=== PATIENT | male | born 1955 | race African-American/Black ===

== ENCOUNTER 2017-08-01 09:06 | Day surgery (SDC) | END 2017-08-01 16:20 | disposition home or self-care (01) ==

== ENCOUNTER 2018-08-07 10:19 | Day surgery (SDC) | payer OTHER ==
[2018-08-07] VITALS (11 sets, daily range): BP systolic 129–149; BP diastolic 70–91; PULSE 54–67; RESP 14–20; Ht 182.9 cm; Wt 114.6 kg
[~2018-08-07] VITALS: Ht 182.9 cm; Wt 114.6 kg
[~2018-08-07 10:19] MED LIST: CEFAZOLIN 2 GM/50 ML (PMX) 50 ML IVPB ONE; DESFLURANE 15 MIN ONE; ENOX150D SQ; GLYCOPYRROLATE 0.4 MG INJ ONE; NEOSTIGMINE 3 MG/3 ML SYRINGE ONE; SIMV20TA PO; WARF5TAB PO; WARF6TAB PO
[2018-08-07] MEDS ORDERED: LACTATED RINGER'S 1,000 ML IV SCH (12:30)
--- NOTE | 2018-08-07 13:35 | PREAC ---
Date/Time of Note Date/Time of Note DATE: 08/07/18 TIME: 13:34 Anesthesia Eval and Record Evaluation Time Pre-Procedure Interview DATE: 08/07/18 TIME: 13:34 Age 63 Sex male NPO: 8 hrs Preoperative diagnosis hydrocele Planned procedure Hydroceletomy Past Medical History Past Medical History: Includes Cardio: HTN, Dyslipidemia Musculoskeletal: Osteoarthritis Surgery & Anesthesia Issues No known issue Meds Anticoagulation: No Beta Jeremi within 24 hr: No Reason Beta Jeremi not given: Pt. not on B-Jeremi Reported Medications Simvastatin* (Zocor*) 20 Mg Tablet, 20 MG PO QHS, #30 TAB 08/01/17 Warfarin Sodium* (Coumadin*) 6 Mg Tablet, 6 MG PO EVERY OTHER DAY, TAB ALTERNATING WITH 5MG 08/01/17 Warfarin Sodium* (Coumadin*) 5 Mg Tablet, 5 MG PO EVERY OTHER DAY, TAB ALTERNATING WITH 6MG 08/01/17 Enoxaparin Sodium (Lovenox) 150 Mg/1 Ml Syringe, 150 MG SQ DAILY 08/01/17 Current Medications Lactated Ringer's 1,000 ml @ 0 mls/hr Q0M IV Last administered on 08/07/18at 12:12; Admin Dose 30 MLS/HR; Start 08/07/18 at 12:30 Meds reviewed: Yes Allergies Coded Allergies: No Known Allergy (Unverified , 08/07/18) Allergies Reviewed: Yes Labs/Studies Labs Reviewed: Reviewed by anesthesiologist test: N/A Studies: ECG Pre-procedure Exam Last vitals Vital Signs Date Temp Pulse Resp B/P (MAP) Pulse Ox O2 O2 Flow FiO2 Time Delivery Rate 08/07/18 97.7 67 18 129/82 98 Room Air 10:52 (98) Airway: Adequate mouth opening, Adequate thyromental dist Mallampati: Mallampati II Teeth: Normal Lung: Normal Heart: Normal ASA Physical Status ASA physical status: 2 Emergency: None Planned Anesthetic General/MAC: ETT Pre-operative Attestations Prior to commencing anesthesia and surgery, the patient was re-evaluated, there was verification of: *The patient's identity *The results of appropriate recent lab work and preoperative vital signs *The above evaluation not changing prior to induction *Anesthetic plan, risk benefits, alternative and complications discussed with patient/family; questions answered; patient/family understands, accepts and wishes to proceed. ABRAM PERKINS August 07, 2018 13:35
[2018-08-07] MEDS ORDERED: FENTAnyl 50 MCG/ML VIAL ONE (13:42)
[2018-08-07] MEDS ORDERED: DIPHENHYDRAMINE 50 MG INJ IV PRN (14:00)
[2018-08-07] MEDS ORDERED: ONDANSETRON 4 MG INJ IV PRN (14:00)
[2018-08-07] MEDS ORDERED: ALBUTEROL 0.083% (NEB) 2.5 MG/3 ML AMP HHN PRN (14:00)
[2018-08-07] MEDS ORDERED: METOCLOPRAMIDE 10 MG INJ IV PRN (14:00)
[2018-08-07] MEDS ORDERED: FENTAnyl 50 MCG/ML VIAL IV PRN ×3 (14:00)
[2018-08-07] MEDS ORDERED: MEPERIDINE 25 MG INJ IV PRN (14:00)
[2018-08-07] MEDS ORDERED: HYDROmorphONE 1 MG/5 ML IV SYRINGE IV PRN ×3 (14:00)
[2018-08-07] MEDS ORDERED: ROCURONIUM 50 MG INJ ONE (14:10)
[2018-08-07] MEDS ORDERED: LIDOCAINE 100 MG SYRINGE ONE (14:10)
[2018-08-07] MEDS ORDERED: CEFAZOLIN 1 GM INJ ONE (14:10)
[2018-08-07] MEDS ORDERED: SUCCINYLCHOLINE CHLORIDE 100 MG/5 ML SYG IV ONE (14:10)
[2018-08-07] MEDS ORDERED: PROPOFOL 20 ML ONE (14:10)
[2018-08-07] MEDS ORDERED: BUPIVACAINE 0.5% (SDV) 30 ML INJ ONE (15:02)
--- NOTE | 2018-08-07 15:22 | SIPON ---
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
--- NOTE | 2018-08-07 15:25 | PDOCDIS ---
Discharge Instructions DIAGNOSIS Discharge Diagnosis recurrent right hydrocele CONDITION [id number] Patient Condition: Gslxo9x Good HOME CARE INSTRUCTIONS: Jmica0Ne Diet Instructions: Efxrs5k Regular ACTIVITY: Imsjg5Hc Activity Restrictions: Prpuw5e Slowly Increase Activity Avoid heavy lifting No Sexual Activity [id number] Bathing Restrictions: Dqlqw4a Shower (OK to shower and get wound wet with running water starting on 08/10/18. Do not swim or emerse in bath water for two weeks) FOLLOW UP/APPOINTMENTS Follow-up Plan 1 - [address] Mandujano Office SCHOOL/WORK RELEASE May return to School/Work on: August 19, 2018 May return to School/Work with: With Restrictions (No lifting more than 5 lb, No straining for two weeks post surgery) ZIGGY MANDUJANO August 07, 2018 15:25
--- NOTE | 2018-08-07 15:27 | DS ---
Date/Time of Note Date/Time of Note DATE: 08/07/18 TIME: 15:25 Discharge Summary Admission/Discharge Info Admit Date/Time 08/07/18 Discharge Date/Time 08/07/18 Discharge Diagnosis recurrent right hydrocele Patient Condition: Good Consults NOne Procedures Right hydrocelectomy, scrotoplasty Hx of Present Illness recurrent right hydrocele Hospital Course Pt underwent the above surgery and transferred to PACU. Once stable, tolerating PO, remaining afebrile, and pain was under control pt was DC'd home Rx for [place] and cipro given to pt Home Meds Reported Medications Simvastatin* (Zocor*) 20 Mg Tablet, 20 MG PO QHS, #30 TAB 08/01/17 Warfarin Sodium* (Coumadin*) 6 Mg Tablet, 6 MG PO EVERY OTHER DAY, TAB ALTERNATING WITH 5MG 08/01/17 Warfarin Sodium* (Coumadin*) 5 Mg Tablet, 5 MG PO EVERY OTHER DAY, TAB ALTERNATING WITH 6MG 08/01/17 Enoxaparin Sodium (Lovenox) 150 Mg/1 Ml Syringe, 150 MG SQ DAILY 08/01/17 Follow-up Plan 1 - [address] Mandujano Office Primary Care Provider Not On Staff Doctor Time spent on discharge: < 30 minutes Pending Labs Laboratory Tests Test 08/07/18 11:15 Prothrombin Time 13.9 Sec (11.9-14.9) Prothrombin Time Ratio 1.1 INR International Normalized Ratio 1.06 Activated Partial Thromboplast Time 34.6 Sec (23.0-35.0) ZIGGY MANDUJANO August 07, 2018 15:27
--- NOTE | 2018-08-07 15:29 | PDOCDIS ---
Discharge Instructions DIAGNOSIS Discharge Diagnosis recurrent right hydrocele CONDITION [id number] Patient Condition: Wyayr6m Good HOME CARE INSTRUCTIONS: Poibr6Kw Diet Instructions: Xtzox0m Regular ACTIVITY: Ewaqm2Pc Activity Restrictions: Adkwx3f Slowly Increase Activity Avoid heavy lifting No Sexual Activity Yomvc7Lf Bathing Restrictions: Njrnv7p Shower (OK to shower and get wound wet with running water starting on 08/10/18. Do not swim or emerse in bath water for two weeks) FOLLOW UP/APPOINTMENTS Follow-up Plan 1 - [address] Mandujano Office OTHER ORDERS: Other Orders: Keep scrotal support on Do not pull out the drain SCHOOL/WORK RELEASE May return to School/Work on: August 19, 2018 May return to School/Work with: With Restrictions (No lifting more than 5 lb, No straining for two weeks post surgery) ZIGGY MANDUJANO August 07, 2018 15:29
--- NOTE | 2018-08-07 16:40 | HP ---
DATE OF ADMISSION: 08/07/2018 CHIEF COMPLAINT: Right hydrocele. HISTORY OF PRESENT ILLNESS: This is a 63-year-old male with history of hypercoagulable state and chr onic DVTs on blood thinners. The patient also has a history of peripheral vascular disease. About 1 year ago, the patient underwent a hydrocelectomy. However, his hydrocele recurred. At that time, i t was noted that the hydrocele sac was severely adherent to the scrotal wall. Therefore, it appears that the entire hydrocele sac may not have been able to be dissected. The patient is very bothered by his large hydrocele. He reports that he has not seen any evidence of enlargement of the inguinal area and has not noticed tracking up of the fluid into the right inguina l area. He has not had any testicular infections. PAST MEDICAL HISTORY: 1. Chronic DVTs, left greater than right leg, with lower extremity edema. 2. Hypercoagulable state. The patient has stopped his Coumadin and has been on Lovenox for the past 5 days. 3. Peripheral artery disease. PAST SURGICAL HISTORY: Fem-fem bypass and previous hydrocelectomy. FAMILY HISTORY: Father with prostate cancer. Grandfather with prostate cancer. Two uncles with pro state cancer. SOCIAL HISTORY: The patient does not smoke; however, apparently, he smoked in the past. ALLERGIES: NO KNOWN DRUG ALLERGIES. MEDICATIONS: 1. Simvastatin. 2. Warfarin. PHYSICAL EXAMINATION: CONSTITUTIONAL: The patient appears to be in no acute distress. GASTROINTESTINAL: Abdomen is soft, normal bowel sounds, nondistended, nontender. Hernia exam none n oted. Liver and spleen are normal. GENITOURINARY: Kidneys no CVA tenderness. Scrotum no lesions, no edema. However, the right hemiscr otum is markedly enlarged consistent with hydrocele. Furthermore, there are multiple large varicosit ies within the scrotal skin, which tracked up into the inguinal area consistent with neovascularity a nd varicosity to drain the lower extremities due to lower extremity deep vein thrombosis. Testes nhi aterally are nontender. Penis no deformity, no lesions. NECK: Normal appearing, symmetric. Normal tracheal position. Thyroid no enlargement. EXTREMITIES: Show markedly edematous and enlarged Left leg with mild right leg edema. ASSESSMENT: 1. Recurrent right hydrocele. 2. Venous lower extremity and pelvic venous congestion/obstruction causing cutaneous varicosities. RECOMMENDATIONS: I have spoken with the patient in detail the natural history and biology of hydroce les. We discussed various treatment options. He understands the options to include but not limited to no treatment, needle aspiration, transscrotal hydrocelectomy with possible right inguinal explorat ion to determine if the patient possibly has a communicating hydrocele. Among these options, I have recommended and the patient has elected to undergo a transscrotal hydrocelectomy with possible right inguinal exploration to determine possibility of a communicating hydrocele. This procedure has been explained to the patient in detail. The risks and benefits have been discussed. He understands that risks include, but not limited to, infection, bleeding, damage to adjacent structures, heart problem s, lung problems, possibility of need for further surgery, DVT, PE, PA, CVA, nonresolution of symptom s, recurrence of symptoms, need for other treatments, need for other surgeries, reoccurrence of the h ydrocele, chronic edema, chronic testicular pain, loss of a testis and abscess formation. The patien t has had an MRI of his pelvis which apparently does not show any communication to the inguinal area or abdominal area. The procedure has been explained to the patient in detail. The risks and benefit s have been discussed. All of his questions have been answered, no guarantees were given. The patie nt would like to proceed. Dictated By: ZIGGY COFFMAN MD, SR/NTS Conf#: [id number] DID#: [id number]
--- NOTE | 2018-08-07 18:24 | OPR ---
DATE OF OPERATION: 08/07/2018 PREOPERATIVE DIAGNOSIS: Right recurrent hydrocele. POSTOPERATIVE DIAGNOSIS: Right recurrent hydrocele. PROCEDURE PERFORMED: 1. Right hydrocelectomy. 2. Scrotoplasty. 3. Scrotal repair. INDICATIONS FOR PROCEDURE: This patient has a history of a previous hydrocelectomy. Based on the danni guevara's prior operative report, it appeared that the hydrocele sac was extremely adherent to the dart os layer. The patient had a recurrence of his hydrocele. The patient is now scheduled to undergo an other hydrocelectomy with possible inguinal exploration in case there appears to be a communicating h ydrocele. The procedure has been explained to the patient in detail. The risks and benefits have be en discussed. All of his questions have been answered, no guarantees were given. He would like to p eamon. FINDINGS: The hydrocele sac did not communicate with the inguinal canal. The hydrocele sac was very thickened. The hydrocele fluid was brown and slightly murky. This was collected and sent for cultu re and cytology. The hydrocele sac was excised to the edges of the testes in order to prevent any f urther formation of hydrocele. The spermatic cord was kept intact. The hydrocele sac was very adher ent to the dartos layer. There was increased desmoplasia and reactive tissue between the hydrocele s ac and the dartos layer. Furthermore, the portion of hydrocele which was attached to the testis was very adherent, edematous, thickened and indurated. The scrotum as well as the dartos layer contained multiple large veins, most likely due to the fact that patient has a deep venous system obstruction; therefore, he has developed a superficial venous dilation for venous return. These vessels were ke pt intact. PROCEDURE IN DETAIL: The patient was brought to the operating room and underwent general anesthesia. He was kept in a supine position. Due to his history of chronic DVTs, lower extremity SCDs were no t applied. The perineum, genitalia and lower abdomen were prepped and draped in the usual sterile fa shion. The patient had been examined preoperatively and intraoperatively. No evidence of clinical c ommunication with the hydrocele and inguinal canal was seen. Furthermore, the patient's MRI has show n no evidence of communication. The scrotum itself contained multiple very large dilated veins subcutaneously. These veins most like ly were dilated due to the fact that the patient has deep venous system obstruction in bilateral legs and possibly in the pelvis. Therefore, he has a little superficial varicosity for venous return. O ne of the larger veins was along the right hemiscrotum. The incision was made along the median raphe well away from this large vessel. The dartos layer was then opened longitudinally. As this was don e, the hydrocele sac was identified. The sac was very adherent to the dartos layer. The sac was then partially dissected off the dartos layer circumferentially laterally, medially and i nferiorly. At all times, the area of the spermatic cord was also kept under palpation. Further diss ection was carried medially. There were multiple parasitic veins between the hydrocele sac and the d artos layer. Some of these veins were pedicalized. They were divided and suture ligated and tied of 2-0 Vicryl sutures. As this was done, further mobilization of the hydrocele sac was obtained off th e dartos layer along the medial and lateral aspects of the hydrocele sac. The hydrocele sac was then everted out of the scrotum. Its posterior attachments were also carefully dissected again. Multipl e veins were identified. These were all tied with 2-0 Vicryl ties. Dissection was carried superfici ally in this manner all the way towards the superior aspect where the patient's spermatic cord blood and blood supply to the testis were seen. This was kept intact. At this point, the hydrocele sac was opened anteriorly. As this was opened, murky, thin brown fluid started to drain. This fluid was collected for cytology and was also collected for a culture. The f luid was sent for cytology and culture. There were some fluid that was then suctioned out. At this point, the hydrocele sac was further opened longitudinally towards the upper pole and the lower pole of the testis. Next, the inner aspect of the hydrocele was examined. The wall of the hydrocele sac was very thickened, irregular and not smooth. However, there did not appear to be multiple septation s. The testis itself appeared to be intact; however, the vaginalis or hydrocele sac was very adheren t to the anterior aspect of the testis. It was not possible to peel this off the testis without inju ry to the testis. The medial aspect of the hydrocele sac was then divided close to its edge towards the testis without injuring the tunica albuginea of the testicle. This lateral portion was resected. Hemostasis was ob tained and was collected to be sent to pathology. The medial aspect of the hydrocele sac was also di vided in this fashion. Of note, the more lateral portion of the hydrocele sac was very stuck to the subdartos layer. There were multiple parasitic vessels which had to be dissected, tied with Vicryl t ies in order to separate the hydrocele sac from its surrounding tissue. Desmoplastic reaction and sc ar tissue was encountered in this area. At all times, the spermatic cord was kept in view and extrem e care was taken not to dissect close to this area. The resected portions of the hydrocele sac were then sent to pathology as right hydrocele sac. Attention was then paid to the remaining edge of the hydrocele sac attached to the testis. This edge was then sutured using a 2-0 Vicryl running suture in a whipstitch baseball fashion. The sac was no t everted onto itself. Rather, about 80% sac had been resected. Therefore, the only portion of sac that was remaining was a portion which was adherent to the anterior aspect of the testis. The edges of the hydrocele sac had been closed using a 2-0 Vicryl running suture. Next, the edge was further s ecured against the peritesticular tissue in order to jas it against those portions and prevent any portion of the hydrocele sac to come together anteriorly. The scrotum was then copiously irrigated. The testis and the spermatic cord were reidentified. The cut were reexamined. No evidence of bleeding. A revascularization was seen. The spermatic cord was completely intact. Furthermore, the upper portion of the hydrocele sac was reexamined. There was n o communication into the inguinal canal. It was a completely closed off hydrocele. The testis was t hen placed back in its normal anatomic position within the scrotum. The dartos layer was then closed partially using 2-0 Vicryl running suture. A small incision was made along the right lateral lower portion of the scrotum. A half-inch Mcneal drain was then brought through this incision and placed into the scrotum above the testis, but below the dartos with a partial dartos layer closure. The res t of the dartos was then further closed using the 2-0 Vicryl suture. The more superficial aspect of the dartos was then closed with another layer with another 2-0 Vicryl running suture. The subcutaneo us layers were closed with 3-0 Vicryl running suture. The skin was then closed with 3-0 chromic runn ing suture. Excellent hemostasis had been obtained prior to closure of the wounds. Fluff scrotal vee pport was then applied. The patient was then awakened, extubated, and taken to recovery room in stab le condition. POSTOPERATIVE CONDITION: Stable. COMPLICATIONS: None. BLOOD LOSS: Less than 30 mL. BLOOD ADMINISTERED: None. SPECIMENS SENT TO LAB: Right hydrocele sac, right hydrocele fluid for culture and right hydrocele fl uid for cytology. Dictated By: ZIGGY COFFMAN MD SR/NTS Conf#: [id number] DID#: [id number]
--- NOTE | 2018-08-08 07:30 | PAC ---
Date/Time of Note Date/Time of Note DATE: 08/08/18 TIME: 07:30 Post-Anesthesia Notes Post-Anesthesia Note Last documented vital signs Vital Signs Date Temp Pulse Resp B/P (MAP) Pulse Ox O2 O2 Flow FiO2 Time Delivery Rate 08/07/18 96.2 63 18 149/91 96 Room Air 16:22 (110) 08/07/18 2.0 15:43 Activity: WNL Respiratory function: WNL Cardiovascular function: WNL Mental status: Baseline Pain reasonably controlled: Yes Hydration appropriate: Yes Nausea/Vomiting absent: Yes ABRAM PERKINS August 08, 2018 07:30
== END 2018-08-07 17:00 | disposition home or self-care (01) ==
LOC: SDS 10:19
PROVIDERS: ATTEND Surgery Surgical Oncology
DX: N43.2 Other hydrocele (principal); I10 Essential (primary) hypertension; Z79.01 Long term (current) use of anticoagulants; E78.5 Hyperlipidemia, unspecified
CPT/HCPCS: 55040; 55175; 85610; 85730; 87070; 87075; 88104; 88107; 88304; J0690; J2001; J2710; J3010; Z7512; Z7610